=== PATIENT | male | born 1985 | race Two or more races ===

== ENCOUNTER 2020-10-21 22:46 | Observation (INO) | payer MEDICAID, OTHER ==
[~2020-10-21] VITALS: Ht 193 cm; Wt 146.7 kg
[2020-10-21] MEDS ORDERED: MAALOX/HYOSCYAMINE/LIDOCAINE 45 ML BTL PO ONE (23:00)
[2020-10-21 23:15] LABS: BASOPHILS % (AUTO) 1 % (0-1); EOSINOPHILS % (AUTO) 3 % (1-7); LYMPHOCYTES % (AUTO) 28 % (22-44); MEAN CORPUSCULAR HEMOGLOBIN 29.3 pg (27.5-34.5); MEAN CORPUSCULAR HGB CONC 34.2 g/dL (33.2-36.2); MEAN PLATELET VOLUME 8.3 fL (7.4-10.4); MONOCYTES % (AUTO) 7 % (2-9); NEUTROPHILS % (AUTO) 62 % (42-75); PLATELET COUNT 216 x10^3/uL (130-400); RED BLOOD COUNT 5.06 x10^6/uL (4.38-5.82); RED CELL DISTRIBUTION WIDTH 14.7 % (9.4-14.8)
[2020-10-21 23:29] LABS: ALANINE AMINOTRANSFERASE 37 U/L (12-78); ALBUMIN 3.7 g/dL (3.4-5.0); ANION GAP 5 mmol/L (5-15); CHLORIDE 107 mmol/L (98-107); CREATININE 1.12 mg/dL (0.7-1.3)
[2020-10-21 23:33] LABS: ALKALINE PHOSPHATASE 88 U/L (45-117); BILIRUBIN,TOTAL 0.5 mg/dL (0.2-1.0); TOTAL PROTEIN 7.8 g/dL (6.4-8.2); TROPONIN I < 0.015 ng/mL (0.000-0.045)
[2020-10-21] MEDS ORDERED: MAALOX/HYOSCYAMINE/LIDOCAINE 45 ML BTL ONE (23:38)
[2020-10-22] MEDS ORDERED: PROMETHAZINE 25 MG/ML, 1ML IM PRN (01:00)
[2020-10-22] MEDS ORDERED: hydrALAzine 20 MG/ML, 1ML IVPush PRN (01:00)
[2020-10-22] MEDS ORDERED: ONDANSETRON ODT 4 MG PO PRN (01:00)
[2020-10-22] MEDS ORDERED: ACETAMINOPHEN 325 MG TABLET PO PRN (01:00)
[2020-10-22] MEDS ORDERED: NITROGLYCERIN 0.4 MG BOTTLE (25 TABS) SL PRN (01:00)
[2020-10-22] MEDS ORDERED: ONDANSETRON 2MG/ML, 2ML IVPush PRN (01:00)
[2020-10-22] MEDS ORDERED: OXYcodone IR 5MG TABLET PO PRN (01:00)
[2020-10-22] MEDS ORDERED: POLYETHYLENE GLYCOL 17 GM PACKET PO PRN (01:00)
[2020-10-22] MEDS ORDERED: BISACODYL 10 MG SUPP PR PRN (01:00)
[2020-10-22] MEDS ORDERED: DOCUSATE 100 MG CAPSULE PO PRN (01:00)
[2020-10-22 01:54] VITALS: BP 138/82
[2020-10-22] MEDS: PANTOPRAZOLE 40 MG IV IVPush SCH ×2 (02:36→15:37)
[2020-10-22] MEDS: HEPARIN 5,000 UNITS/ML, 1ML SQ SCH ×3 (02:36→17:11)
[2020-10-22] MEDS: SODIUM CHLORIDE 0.9% 1,000 ML IV SCH ×2 (02:36→11:00)
[2020-10-22] MEDS: ASPIRIN 325 MG TABLET EC PO SCH (05:24)
[2020-10-22 06:08] LABS: TROPONIN I < 0.015 ng/mL (0.000-0.045)
[2020-10-22 08:08] LABS: TROPONIN I < 0.015 ng/mL (0.000-0.045)
[2020-10-22] MEDS ORDERED: REGADENOSON 0.4 MG/5 ML SYRINGE ONE (08:08)
[2020-10-22 08:17] VITALS: BP 128/88
[2020-10-22 13:10] VITALS: BP 126/71
[2020-10-22 19:01] VITALS: BP 126/74
[2020-10-23] MEDS: HEPARIN 5,000 UNITS/ML, 1ML SQ SCH ×2 (00:58→09:23)
[2020-10-23] MEDS: PANTOPRAZOLE 40 MG IV IVPush SCH (00:58)
[2020-10-23 01:06] VITALS: BP 112/71
[2020-10-23 04:59] LABS: BASOPHILS % (AUTO) 1 % (0-1); EOSINOPHILS % (AUTO) 4 % (1-7); LYMPHOCYTES % (AUTO) 31 % (22-44); MEAN CORPUSCULAR HEMOGLOBIN 29.4 pg (27.5-34.5); MEAN CORPUSCULAR HGB CONC 34.3 g/dL (33.2-36.2); MEAN PLATELET VOLUME 8.3 fL (7.4-10.4); MONOCYTES % (AUTO) 8 % (2-9); NEUTROPHILS % (AUTO) 57 % (42-75); PLATELET COUNT 203 x10^3/uL (130-400); RED BLOOD COUNT 5.16 x10^6/uL (4.38-5.82); RED CELL DISTRIBUTION WIDTH 14.6 % (9.4-14.8)
[2020-10-23 05:07] LABS: ALBUMIN 3.6 g/dL (3.4-5.0); CHLORIDE 108 mmol/L (98-107)
[2020-10-23 05:16] LABS: ALANINE AMINOTRANSFERASE 33 U/L (12-78); ALKALINE PHOSPHATASE 65 U/L (45-117); ANION GAP 4 mmol/L (5-15); BILIRUBIN,TOTAL 0.8 mg/dL (0.2-1.0); CALCIUM 8.8 mg/dL (8.5-10.1); CHOL/HDL RATIO 4.9; CHOLESTEROL, TOTAL 152 mg/dL (140-239); CREATININE 0.82 mg/dL (0.7-1.3); HDL CHOL % 20 % (26-37); HDL CHOLESTEROL (DIRECT) 31 mg/dL (40-60); LDL CHOLESTEROL,CALCULATED 66 mg/dL (54-169); LDL/HDL RATIO 2.1 (0.5-3.0); TOTAL PROTEIN 7.6 g/dL (6.4-8.2); TRIGLYCERIDES 274 mg/dL (50-200); VLDL CHOLESTEROL 55 mg/dL (0-25)
[2020-10-23] MEDS: ASPIRIN 325 MG TABLET EC PO SCH (05:56)
[2020-10-23 07:49] VITALS: BP 136/89
[2020-10-23 12:45] VITALS: BP 143/89
== END 2020-10-23 13:25 | disposition home or self-care (01) ==
LOC: ED 10-22 00:37 → INTOOBSV 10-22 00:45 → EDIP 10-22 00:45 → 5SO 10-22 01:34 → DCLOUNGE 10-23 13:17
PROVIDERS: ADMIT Internal Medicine; ATTEND Internal Medicine
DX: R07.89 Other chest pain (principal); R20.0 Anesthesia of skin; R20.2 Paresthesia of skin; R73.03 Prediabetes; E66.01 Morbid (severe) obesity due to excess calories; F12.90 Cannabis use, unspecified, uncomplicated; Z87.891 Personal history of nicotine dependence; Z79.899 Other long term (current) drug therapy; Z68.39 Body mass index [BMI] 39.0-39.9, adult
CPT/HCPCS: 36415; 71045; 78452; 80053; 80061; 83036; 83690; 83735; 84100; 84443; 84484; 85025; 93005; 93017; 93306; 96361; 96372; 96374; 96376; 99285; A9502; C9113; G0378; J1644; J2785; J7030